=== PATIENT | male | born 1955 | race Caucasian/White ===

== ENCOUNTER 2023-01-26 14:10 | Outpatient (CLI) | payer MEDICARE, SELFPAY ==
--- NOTE | ~2023-01-26 | US_ITS ---
EXAMINATION:US venous doppler LE BI INDICATION:Localized edema TECHNIQUE: Multiple grayscale, color flow and Doppler images of the bilateral lower extremity deep ve nous systems were obtained and reviewed. COMPARISON:No prior studies for comparison. FINDINGS: The common femoral, superficial femoral and popliteal veins demonstrate normal respiratory variation, augmentation and compressibility. Color flow is also seen within the posterior tibial, pe roneal, greater saphenous and profunda veins. IMPRESSION: 1: No lower extremity deep venous thrombosis. Reviewed, dictated and finalized at location L.
--- NOTE | ~2023-01-26 | US_ITS ---
EXAMINATION: US art doppler w press LEILANI SERRANO DATE: 01/26/2023 16:34 INDICATION: Asymptomatic varicose veins of bilateral lower extremities. Lower limb pain and swelling. TECHNIQUE: Segmental pressures and plethysmographic and Doppler waveforms of the brachial and lower e xtremity arteries were obtained. COMPARISON: None. FINDINGS: Right and left brachial artery pressures of 128 mm Hg and 129 mm Hg, respectively, are concordant (no rmal difference <= 30 mmHg). The right ankle-brachial index (MABEL) is 0.74 (normal >= 0.9-1) based only upon pressures in the right dorsalis pedis artery with occlusion of the right posterior tibial artery. The right great toe-brach ial index (TBI) is 0.45 (normal >= 0.6-0.8). Arterial waveforms are biphasic with brisk systolic upst rokes at the right common femoral, superficial femoral and popliteal arteries. There appears to be re versal of the waveform in the right dorsalis pedis artery however no color Doppler imaging is provide d for confirmation. The left MABEL is 1.05. The left TBI is 0.68 similarly based only upon pressures in the left dorsalis p mayra artery with occlusion of the left posterior tibial artery. Arterial waveforms are triphasic at t he left common femoral and popliteal arteries and biphasic at the left superficial femoral and dorsal is pedis arteries, all with brisk systolic upstrokes. IMPRESSION: 1. Arterial occlusive disease with mildly decreased right MABEL and TBI and complete occlusion of the r ight posterior tibial artery. 2. Arterial occlusive disease in the left lower limb with complete occlusion of the left posterior ti bial artery but with still normal left MABEL and TBI. Reviewed, dictated and finalized at location A. IMPRESSION: 1. Arterial occlusive disease with mildly decreased right MABEL and TBI and compl ete occlusion of the right posterior tibial artery. 2. Arterial occlusive disease in the left lower limb with complete occlusion of the left posterior tibial artery but with still normal left MABEL and TBI.
== END 2023-01-26 14:11 | disposition home or self-care (01) ==
PROVIDERS: PCP Family Medicine; Visit Provider Nurse Practitioner Family
DX: I73.9 Peripheral vascular disease, unspecified (principal); R60.0 Localized edema
CPT/HCPCS: 93923; 93970